=== PATIENT | female | born 1970 | race Caucasian/White ===

== ENCOUNTER → 2024-01-23 08:19 | Outpatient (REF) | payer OTHER, SELFPAY | LOC: HWWDC 08:19 | PROVIDERS: ATTENDING PHYSICIAN Internal Medicine | DX: Z12.31 Encounter for screening mammogram for malignant neoplasm of breast (principal) | CPT/HCPCS: 77063; 77067 ==

== ENCOUNTER → 2025-06-19 13:03 | Outpatient (REF) | payer OTHER, SELFPAY | LOC: HWWDC 13:03 | PROVIDERS: ATTENDING PHYSICIAN Internal Medicine | DX: Z12.31 Encounter for screening mammogram for malignant neoplasm of breast (principal) | CPT/HCPCS: 77063; 77067 ==